=== PATIENT | female | born 1990 | race African-American/Black ===

== ENCOUNTER 2017-09-28 18:17 | Emergency (ER) | payer MEDICAID ==
[~2017-09-28] VITALS: Ht 170.2 cm; Wt 106.0 kg
[2017-09-28] MEDS ORDERED: IBUPROFEN 800MG TABLET PO ONE (20:30)
[2017-09-28 21:03] LABS: HCG SCREEN NEGATIVE
[2017-09-28 21:27] VITALS: BP 147/87
== END 2017-09-28 22:11 | disposition home or self-care (01) ==
LOC: ER 19:19
DX: J98.8 Other specified respiratory disorders (principal); J45.909 Unspecified asthma, uncomplicated
CPT/HCPCS: 71045; 84703; 87070; 87430; 87804; 99285